=== PATIENT | female | born 1965 | race Two or more races ===

== ENCOUNTER 2025-06-21 06:26 | Emergency (ER) | payer MEDICAID, OTHER ==
[~2025-06-21] VITALS: Ht 165.1 cm; Wt 70.0 kg
[2025-06-21] MEDS: HYDROcodone-ACET 10/325MG TAB PO ONE ×2 (06:50→08:18)
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
[2025-06-21 08:26] VITALS: BP 132/79; PULSE 66; RESP 16; TEMP 97.7; O2SAT 99
[2025-06-21] MEDS ORDERED: IBU600T PO (08:49)
== END 2025-06-21 09:03 | disposition home or self-care (01) ==
LOC: ER 06:26 → EDBD 06:26 → ER 09:02
DX: M79.18 Myalgia, other site (principal); Z79.899 Other long term (current) drug therapy
CPT/HCPCS: 71101